=== PATIENT | female | born 1975 | race Caucasian/White ===

== ENCOUNTER 2017-03-30 05:20 | Day surgery (SDC) | payer BC, OTHER ==
[~2017-03-30] VITALS: Ht 160 cm; Wt 48.1 kg
--- NOTE | ~2017-03-30 | O ---
[facility] [place] [address] OPERATIVE REPORT Name: SANDRINE SUAREZ Room #: DEP [facility].#: [id number] Admission: 03/30/17 Attend Phys: Brandon Mauricio MD Discharge: 03/30/17 Date of : 75 Report #: [id number] THIS REPORT FOR: //name// CC: [facility] physician/PCP Brandon Mauricio DATE OF SERVICE: 03/30/2017 PREOPERATIVE DIAGNOSIS: Right maxillary sinusitis, chronic. POSTOPERATIVE DIAGNOSIS: Right maxillary sinusitis, chronic. PROCEDURE: Right inferior maxillary window endoscopic and revision. SURGEON: Brandon Mauricio MD. ANESTHESIA: General LMA. INDICATIONS: See H and P. TECHNIQUE: After obtaining consent, she was brought to the operating suite, appropriate timeout was performed. After obtaining adequate depth of anesthesia with inhalational agents and IV agents, the bed was turned to 90 degrees. Nose was prepped and draped in the usual sterile fashion. Afrin-soaked cottonoids were placed in the right nasal passageway to constrict the inferior middle turbinate. 2 mL of 1% Xylocaine and 1:100,000 epinephrine was injected on the lateral aspect of the inferior turbinate and the inferolateral nasal wall and the right nasal floor. Using a 30-degree endoscope, the inferior turbinate was infractured to visualize the medial maxillary wall. Using a double ball probe, I was able to find a mucosally covered opening into the maxillary sinus. This barely admitted the double ball and using a double ball as a guide, once I was in the maxillary sinus, I enlarged the antrostomy with the use of a 0 and 45-degree Logan-Cut forceps along with a side biter. Upon removal of the bone and mucosa, I was able to easily admit the largest curved suction to at least twice its size. Having adequately performed an antrostomy, the procedure was then concluded. A single piece of Merogel was cut in half, folded and placed through the antrostomy into the nasal floor as well as to keep the inferior turbinate medialized. Nasopharynx was suctioned free of secretions, taken to recovery room in stable condition. Estimated blood loss 5 mL. <ELECTRONICALLY SIGNED> By: Brandon Mauricio MD 03/30/17 [id number] Brandon Mauricio MD /nt
[~2017-03-30 05:20] MED LIST: ASPIRIN325 PO; SPIRONOLACTONE100 M3 PO
[2017-03-30 06:59] VITALS: BP 108/82
[2017-03-30 09:28] VITALS: BP 108/82
== END 2017-03-30 09:45 | disposition home or self-care (01) ==
LOC: OR 05:20 → TBA 05:21 → OR 09:45
DX: J32.0 Chronic maxillary sinusitis (principal); Z88.6 Allergy status to analgesic agent; Z88.0 Allergy status to penicillin; Z88.2 Allergy status to sulfonamides; Z88.8 Allergy status to other drugs, medicaments and biological substances; Z85.828 Personal history of other malignant neoplasm of skin; Z79.82 Long term (current) use of aspirin
CPT/HCPCS: 50010; 50101; 50286; 50386; 50398; 53635; 62110; 62900; 64037; 70005